=== PATIENT | female | born 1970 | race Caucasian/White ===

== ENCOUNTER 2024-04-16 07:02 | Day surgery (SDC) | payer OTHER ==
[~2024-04-16] VITALS: Ht 162.6 cm; Wt 120.2 kg
[2024-04-16] MEDS ORDERED: SIMETHICONE 40 MG/0.6 ML ML ONE (07:57)
[2024-04-16] MEDS ORDERED: MEPERIDINE 100 MG INJ. 100 MG/ML VIAL ONE (07:57)
[2024-04-16] MEDS ORDERED: MIDAZOLAM HCL 5 MG/5 ML VIAL ONE (07:57)
[2024-04-16 10:14] VITALS: O2SAT 97
[2024-04-16 12:41] VITALS: BP_SYST 110; PULSE 64; RESP 14
== END 2024-04-16 09:34 | disposition home or self-care (01) ==
LOC: SDS 07:02 → SMU 07:05 → SDS 09:34
PROVIDERS: ATTEND Internal Medicine
DX: Z12.11 Encounter for screening for malignant neoplasm of colon (principal); K63.5 Polyp of colon; K57.30 Diverticulosis of large intestine without perforation or abscess without bleeding; K64.8 Other hemorrhoids; E11.9 Type 2 diabetes mellitus without complications; Z79.84 Long term (current) use of oral hypoglycemic drugs; Z79.899 Other long term (current) drug therapy; Z88.2 Allergy status to sulfonamides; Z98.890 Other specified postprocedural states
CPT/HCPCS: 45385; 82948; 88305; 99152; G0378; J2250; J2175